=== PATIENT | female | born 1980 | race Caucasian/White ===

== ENCOUNTER 2018-12-02 19:51 | Emergency (ER) | payer SELFPAY ==
[~2018-12-02] VITALS: Ht 157.5 cm; Wt 61.2 kg
[2018-12-02 20:00] VITALS: BP 113/71
[2018-12-02 21:42] VITALS: BP 121/65
[2018-12-02] MEDS ORDERED: KETOROLAC 30 MG/ML VIAL IM ONE (22:10)
[2018-12-02] MEDS ORDERED: KETOROLAC 15 MG/ML VIAL ONE (22:13)
== END 2018-12-02 23:24 | disposition home or self-care (01) ==
LOC: MED 19:51
DX: N39.0 Urinary tract infection, site not specified (principal); B34.9 Viral infection, unspecified; Z90.49 Acquired absence of other specified parts of digestive tract
CPT/HCPCS: 71045; 81002; 81025; 96372; 99283; J1885; Q0092

== ENCOUNTER 2019-05-26 23:47 | Emergency (ER) | payer SELFPAY ==
[~2019-05-26] VITALS: Ht 154.9 cm; Wt 59.0 kg
--- NOTE | 2019-05-27 | NUR ---
PT TAKEN TO BED 11
[2019-05-27 00:05] VITALS: BP 149/74
--- NOTE | 2019-05-27 00:05 | NUR ---
SUBJECTIVE FEVER X3 DAYS, 10/10 RAMIREZ X1 DAY, PRODUCTIVE COUGH, EARACHE X2 DAYS R SIDE, SORE THROAT, N/V, X2, LEFT BREAST PAIN X1 DAY. VSS. TEMP 99.2 IN TRIAGE. LAST TOOK TYLENOL 1 HOUR AGO. STATES SHE TOOK AN AMOXICILLAN FROM A FAMILY MEMBER RIGHT BEFORE COMING TO ER. DENIES DIARRHEA. LS CLEAR AND EQUAL BILATERALLY. ABDOMINAL QUADRANTS ACTIVE X4. WILL CONTINUE TO MONITOR. PMH: HYPERTHRYROID NKA
--- NOTE | 2019-05-27 00:30 | NUR ---
URINE SAMPLE OBTAINED; DIPPED; U-PREG NEG; URINALYSIS SENT TO LAB
[2019-05-27] MEDS ORDERED: NACL 0.9% 1,000 ML IV ONE (00:50)
[2019-05-27] MEDS ORDERED: ONDANSETRON 4 MG/2 ML VIAL IVP ONE (00:50)
[2019-05-27] MEDS ORDERED: cefTRIAXone 2,000 MG in DEXTROSE 5% 100 ML IV ONE (00:50)
[2019-05-27] MEDS ORDERED: KETOROLAC 30 MG/ML VIAL IVP ONE (00:50)
[2019-05-27] MEDS ORDERED: cefTRIAXone 2,000 MG VIAL ONE (01:00)
--- NOTE | 2019-05-27 01:00 | NUR ---
IV PLACED; IV ZOFRAN AND TORADOL GIVEN; 1L NS IVF BOLUS STARTED; IV ROCEPHIN STARTED; WILL CONTINUE TO MONITOR.
[2019-05-27 01:03] LABS: BASOPHILS # (AUTO) 0.1 K/uL (0.00-0.22); BASOPHILS % (AUTO) 1.1 % (0.0-2.0); EOSINOPHILS # (AUTO) 0.1 K/uL (0-0.4); EOSINOPHILS % (AUTO) 0.8 % (0.0-4.0); HEMATOCRIT 39.9 % (36-48); HEMOGLOBIN 13.5 g/dL (12.0-16.0); LYMPHOCYTES # (AUTO) 2.5 K/uL (2.5-16.5); LYMPHOCYTES % (AUTO) 27.1 % (20.5-51.1); MEAN CORPUSCULAR HEMOGLOBIN 29 pg (27-31); MEAN CORPUSCULAR HGB CONC 34 g/dL (33-37); MEAN CORPUSCULAR VOLUME 86.8 fL (80-94); MONOCYTES # (AUTO) 0.7 K/uL (0.8-1.0); MONOCYTES % (AUTO) 7.2 % (1.7-9.3); NEUTROPHILS % (AUTO) 63.8 % (42.2-75.2); PLATELET COUNT (AUTO) 328 K/uL (140-450); RED CELL DISTRIBUTION WIDTH 13.8 % (11.6-13.7); WHITE BLOOD COUNT (AUTO) 9.4 K/uL (4.8-10.8)
[2019-05-27 01:04] LABS: APPEARANCE,URINE CLOUDY (CLEAR); BILIRUBIN,URINE NEGATIVE (NEGATIVE); BLOOD, URINE TRACE-I (NEGATIVE); COLOR,URINE YELLOW (YELLOW); LEUKOCYTE ESTERASE ,URINE 2+ (NEGATIVE); NITRITE, URINE NEGATIVE (NEGATIVE); PH,URINE 6.5 (5.0-9.0); UGLUCOSE NEGATIVE (NEGATIVE)
[2019-05-27 01:29] LABS: ALBUMIN 3.4 g/dL (3.4-5.0); ANION GAP 10.2 (8-16); CARBON DIOXIDE 28.6 mmol/L (21-32); CREATININE 0.7 mg/dL (0.6-1.3); POTASSIUM 3.8 mmol/L (3.5-5.1); TOTAL BILIRUBIN 0.2 mg/dL (0.0-1.0)
[2019-05-27 01:37] LABS: WBC,URINE TOO MANY TO COUNT /HPF (0-5)
[2019-05-27 02:16] VITALS: BP 149/74
--- NOTE | 2019-05-27 02:19 | NUR ---
Patient discharged with v/s stable. Written and verbal after care instructions given and explained. Patient alert, oriented and verbalized understanding of instructions. Ambulatory with steady gait. All questions addressed prior to discharge. ID band removed. Patient advised to follow up with PMD. Rx of ZOFRAN, MACROBID given. Patient educated on indication of medication including possible reaction and side effects. Opportunity to ask questions provided and answered.
== END 2019-05-27 02:19 | disposition home or self-care (01) ==
LOC: MED 23:47
DX: N12 Tubulo-interstitial nephritis, not specified as acute or chronic (principal); R03.0 Elevated blood-pressure reading, without diagnosis of hypertension
CPT/HCPCS: 36415; 80053; 81001; 82150; 83690; 85025; 87086; 96365; 96375; 99284; J0696; J1885; J2405; J7030

== ENCOUNTER 2021-06-11 11:55 | Emergency (ER) | payer SELFPAY ==
[~2021-06-11] VITALS: Ht 152.4 cm; Wt 61.2 kg
[2021-06-11 11:59] VITALS: BP 115/67
[2021-06-11] MEDS ORDERED: MORPHINE SULFATE 4 MG/ML SYR IM ONE (12:55)
[2021-06-11] MEDS ORDERED: ONDANSETRON 4 MG ODT PO ONE (12:55)
--- NOTE | 2021-06-11 13:43 | NUR ---
41 y/o female, c/o right leg pain from hip down all the way down to lower leg for 1 week. pt states she has limited mobility. denies fall or injury. pt states pain radiates to low back at time, denies dysuria, hematuria or urinary rentention. a&ox4, ambulates slowly with minimal assist. pmh: thyroid disease nka med: ibuprofen (no relief)
[2021-06-11] MEDS ORDERED: ACET-8386 PO (13:48)
--- NOTE | 2021-06-11 13:52 | NUR ---
pt drove here, pt understands that she can not drive or operate heavy machines until medication effect wears off. pt will call someone for transport.
--- NOTE | 2021-06-11 14:28 | NUR ---
Patient discharged with v/s stable. Written and verbal after care instructions given and explained. Patient alert, oriented and verbalized understanding of instructions. Ambulatory with son to car. All questions addressed prior to discharge. ID band removed. Patient advised to follow up with PMD. Rx of norco (sent) given. Patient educated on indication of medication including possible reaction and side effects. Opportunity to ask questions provided and answered.
--- NOTE | 2021-06-11 14:28 | NUR ---
corey hector speaking with pt on further questions she has
[2021-06-11 14:29] VITALS: BP 115/67
== END 2021-06-11 14:28 | disposition home or self-care (01) ==
LOC: MED 11:55
DX: M54.41 Lumbago with sciatica, right side (principal); Z90.49 Acquired absence of other specified parts of digestive tract
CPT/HCPCS: 81002; 81025; 96372; 99283; J2270; Q0162